=== PATIENT | female | born 1965 | race Caucasian/White ===

== ENCOUNTER → 2016-04-09 | Outpatient (CLI) | payer BC ==
[2016-04-09 15:01] LABS: MEAN CORPUSCULAR HEMOGLOBIN 27.1 PG (26.0-34.0); MEAN CORPUSCULAR HGB CONC 33.1 g/dL (31.0-37.0); MEAN CORPUSCULAR VOLUME 82 FL (80-100); MEAN PLATELET VOLUME 9.3 FL (6.0-9.5); PLATELET COUNT 212 10^3uL (150-450); WHITE BLOOD COUNT 5.55 10^3uL (4.0-11.0)
[2016-04-09 15:20] LABS: BAND NEUTROPHILS % 0 % (0-6); EOSINOPHILS % 0 % (0-4); LYMPHOCYTES # 1.6 #; MONOCYTES # 0.2 #; MONOCYTES % 4 % (3-11); RBC MORPH SEE REFERENCE (NORMAL); SEGMENTED NEUTROPHILS % 67 % (51-67); TOTAL CELLS COUNTED 100
[2016-04-09 15:21] LABS: POIKILOCYTOSIS SLIGHT
[2016-04-09 15:47] LABS: CALCULATED IONIZED CALCIUM 4.2 mg/dL (3.8-4.6); TOTAL PROTEIN 8.2 g/dL (6.4-8.5)
== END ==
LOC: LAB 14:37 → ASC 14:41
PROVIDERS: ATTEND Surgery
DX: D64.9 Anemia, unspecified (principal); R10.9 Unspecified abdominal pain
CPT/HCPCS: 36415; 80053; 85007; 85027

== ENCOUNTER 2016-04-17 06:30 | Day surgery (SDC) | payer BC ==
[~2016-04-17] VITALS: Ht 172.7 cm; Wt 67.3 kg
[~2016-04-17 06:30] MED LIST: LACTATED RINGERS 1,000 ML IV SCH; SODIUM CHLORIDE FLUSH 3 ML SYR IV PRN
[2016-04-17 06:39] VITALS: BP 131/79
[2016-04-17] MEDS ORDERED: SIMETHICONE 40 MG/0.6 ML (MYLICON DROPS) ORAL SYRINGE ONE (06:42)
[2016-04-17] MEDS ORDERED: LIDOCAINE 4% TOPICAL 4.5 ML SYR ONE (06:42)
[2016-04-17] MEDS ORDERED: MINERAL OIL 25 ML BTL TOP ONE (06:42)
[2016-04-17] MEDS ORDERED: ALFENTANIL 500 MCG/ML (ALFENTA) 5 ML AMP IV ONE (07:15)
[2016-04-17] MEDS ORDERED: PROPOFOL 20 ML IV ONE ×2 (07:15)
[2016-04-17] MEDS ORDERED: MIDAZOLAM 2 MG/2 ML (VERSED) VIAL ONE (07:15)
[2016-04-17 08:04] VITALS: BP 111/65
[2016-04-17 08:27] VITALS: BP 118/73
== END 2016-04-17 08:46 | disposition home or self-care (01) ==
LOC: ASC 06:30
PROVIDERS: ATTEND Surgery
DX: D50.9 Iron deficiency anemia, unspecified (principal); R10.11 Right upper quadrant pain; K59.00 Constipation, unspecified; K29.50 Unspecified chronic gastritis without bleeding; K82.8 Other specified diseases of gallbladder; K63.89 Other specified diseases of intestine
CPT/HCPCS: 43239; 45378; J2250; J7120

== ENCOUNTER → 2016-04-22 | Outpatient (CLI) | payer BC | LOC: RAD 09:28 | PROVIDERS: ATTEND Surgery | DX: D64.9 Anemia, unspecified (principal); R10.11 Right upper quadrant pain | CPT/HCPCS: 74250 ==